=== PATIENT | female | born 1945 | race Hispanic/Latino ===

== ENCOUNTER → 2021-04-20 | Outpatient (CLI) | payer MEDICARE ==
[~2021-04-20] MED LIST: ALBU90AE IH; ASPI-1005 PO; BACL10TA PO; CARV6.25 PO; CLON0.5T4 PO; DOXY100C5 PO; LEVO50TA11 PO; LOSA50TA64 PO; MONTELUKAST PO; PRAV20TA4 PO; SPIR25TA PO; TRAM50TA4 PO; advair IH
== END | disposition home or self-care (01) ==
LOC: RAH 13:04
PROVIDERS: ATTEND Orthopaedic Surgery
DX: M17.11 Unilateral primary osteoarthritis, right knee (principal); M77.31 Calcaneal spur, right foot
CPT/HCPCS: 73700

== ENCOUNTER 2023-12-05 08:29 | Day surgery (SDC) | payer MEDICARE ==
[2023-12-05] VITALS (11 sets, daily range): BP systolic 87–134; BP diastolic 45–71; PULSE 70–79; RESP 14–16
[~2023-12-05 08:29] MED LIST changes: +0.9%NACL 1000ML 1,000 ML IV ONE; -ALBU90AE IH; -BACL10TA PO; +CELE-146 PO; -CLON0.5T4 PO; -DOXY100C5 PO; +FLUT1BLS9 IH; +FURO40TA5 PO; +GABA300C PO; -LOSA50TA64 PO; -MONTELUKAST PO; +OMEP40CA21 PO; +PRAM0.258 PO; +SACU1TAB7 PO; -TRAM50TA4 PO; -advair IH
[2023-12-05] MEDS ORDERED: PRAMIPEXOLE PO (08:55)
[2023-12-05] MEDS ORDERED: CARV12.511 PO (08:57)
[2023-12-05] MEDS ORDERED: SPIR25TA PO (08:58)
[2023-12-05] MEDS ORDERED: [UNRECOGNIZED DRUG - OTHER] PO (09:00)
[2023-12-05] MEDS ORDERED: DULO60CA64 PO (09:01)
[2023-12-05] MEDS ORDERED: PROPOFOL 10 MG/ML 20ML VIAL IV ONE (09:38)
== END 2023-12-05 11:20 | disposition home or self-care (01) ==
LOC: ENDO 08:29 → DAH 08:29 → ENDO 11:20
PROVIDERS: ATTEND Internal Medicine Gastroenterology
DX: K92.1 Melena (principal); R12 Heartburn; K59.00 Constipation, unspecified; K29.50 Unspecified chronic gastritis without bleeding; K31.89 Other diseases of stomach and duodenum; R00.0 Tachycardia, unspecified; J45.909 Unspecified asthma, uncomplicated; I10 Essential (primary) hypertension; M19.90 Unspecified osteoarthritis, unspecified site; F41.9 Anxiety disorder, unspecified; E78.2 Mixed hyperlipidemia; E78.5 Hyperlipidemia, unspecified; Z90.710 Acquired absence of both cervix and uterus; Z80.0 Family history of malignant neoplasm of digestive organs; Z86.010 Personal history of colon polyps; Z79.82 Long term (current) use of aspirin; Z79.899 Other long term (current) drug therapy
CPT/HCPCS: 43239; 45378; J7030 ×2; J2704; A4620; A4215; A4223; A4657; A7002; A4222; A4221; A4663; A4606; J3490

== ENCOUNTER 2024-08-08 06:22 | Day surgery (SDC) | payer MEDICARE ==
[2024-08-06 11:06] VITALS: BP 143/98; PULSE 91; RESP 18; TEMP 97.2
[2024-08-06 11:18] LABS: CREATININE 0.9 mg/dL (0.5-1.0)
[2024-08-06 11:29] LABS: INR 1.02 (0.85-1.15)
[2024-08-06 11:46] LABS: BASOPHILS # (AUTO) 0.05 K/uL (0.00-0.20); BASOPHILS % (AUTO) 1.1 % (0.0-5.0); EOSINOPHILS # (AUTO) 0.17 K/uL (0.00-0.70); EOSINOPHILS % (AUTO) 3.8 % (0.0-8.0); HEMATOCRIT 39.3 % (36-48); IMMATURE GRANULOCYTE ABSOLUTE 0.03 K/uL (0-1); LYMPHOCYTES # (AUTO) 1.5 K/uL (1.0-4.8); LYMPHOCYTES % (AUTO) 33.1 % (21.0-51.0); MEAN CORPUSCULAR HEMOGLOBIN 31.6 pg (27.0-33.0); MEAN CORPUSCULAR HGB CONC 32.6 g/dL (32.0-36.0); MONOCYTES # (AUTO) 0.4 K/uL (0.1-1.0); MONOCYTES % (AUTO) 7.9 % (3.0-13.0); NEUTROPHILS # (AUTO) 2.4 K/uL (1.8-7.7); NEUTROPHILS % (AUTO) 53.4 % (40.0-77.0); NUCLEATED RED BLOOD CELLS 0.4 % (0.0-0.19); PLATELET COUNT (AUTO) 264 K/uL (130-400); RED BLOOD CELL COUNT(AUTO) 4.05 MIL/uL (4.00-5.50); RED CELL DISTRIBUTION WIDTH 12.7 % (11.0-15.5); WHITE BLOOD COUNT (AUTO) 4.5 K/uL (4.8-10.8)
--- NOTE | 2024-08-06 14:19 | EKG ---
[facility] Test Date: 2024-08-06 Test Time: 11:50:15 Pat Name: AISHA MCDUFFIE Department: [facility] Room: [facility] Gender: F [employer] Stripper: [id number] : 1945 Requested By: Nick HOU Order Number: [id number] Reading MD: Zach Gonzales Measurements Intervals Drain Rate: 82 P: 134 SD: 64 QRS: -21 QRSD: 156 T: 95 QT: 455 QTc: 531 Interpretive Statements Atrial-sensed ventricular-paced rhythm Biventricular paced rhythm Compared to ECG 07/20/2016 07:35:29 No significant changes Electronically Signed On 08-10-2024 17:14:06 [employer] by Zach Gonzales Please click the below link to view image of tracing.
[2024-08-08] VITALS (13 sets, daily range): BP systolic 104–139; BP diastolic 49–91; PULSE 70–81; RESP 14–18; TEMP 97.4–97.7
[~2024-08-08] VITALS: Ht 165.1 cm; Wt 88.3 kg
[~2024-08-08 06:22] MED LIST changes: -0.9%NACL 1000ML 1,000 ML IV ONE; +CARV12.511 PO; -CARV6.25 PO; -CELE-146 PO; +DULO60CA64 PO; -FLUT1BLS9 IH; -GABA300C PO; -OMEP40CA21 PO; -PRAM0.258 PO
[2024-08-08] MEDS ORDERED: BUPIvacaine/PF 0.25% 30ML VIAL IJ ONE (07:11)
[2024-08-08] MEDS ORDERED: LIDOCAINE HCL 1% MDV 50ML VIAL ONE (07:11)
[2024-08-08] MEDS ORDERED: ceFAZolin SODIUM 1 GM VIAL ONE (07:11)
[2024-08-08] MEDS: 0.9%NACL 1000ML 1,000 ML IV SCH (07:17)
[2024-08-08] MEDS ORDERED: MIDAZOLAM HCL 1 MG/ML 2ML VIAL ONE ×3 (07:36→07:53)
[2024-08-08] MEDS ORDERED: MEPERIDINE-PF 25 MG/ML SYG ONE ×3 (07:36→07:53)
[2024-08-08] MEDS ORDERED: TEMAZepam 30 MG CAP PO PRN (08:30)
[2024-08-08] MEDS ORDERED: ondanSETRON 4MG INJ IV PRN (08:30)
[2024-08-08] MEDS ORDERED: acetaMINOPHEN 325 MG TAB PO PRN ×2 (09:00)
[2024-08-08] MEDS ORDERED: DOXY100C5 PO (09:23)
[2024-08-08] MEDS: ceFAZolin SODIUM 1 GM VIAL IVPB SCH (13:25)
[2024-08-08] MEDS ORDERED: ceFAZolin SODIUM 1 GM VIAL IVPB SCH (15:00)
== END 2024-08-08 14:55 | disposition home or self-care (01) ==
LOC: DAH 06:22
PROVIDERS: ATTEND Internal Medicine Cardiovascular Disease
DX: Z45.02 Encounter for adjustment and management of automatic implantable cardiac defibrillator (principal); I25.5 Ischemic cardiomyopathy; I11.0 Hypertensive heart disease with heart failure; I50.22 Chronic systolic (congestive) heart failure; E78.5 Hyperlipidemia, unspecified; E03.9 Hypothyroidism, unspecified; J45.909 Unspecified asthma, uncomplicated; M19.90 Unspecified osteoarthritis, unspecified site; Z79.82 Long term (current) use of aspirin; Z88.5 Allergy status to narcotic agent; Z98.890 Other specified postprocedural states; Z79.01 Long term (current) use of anticoagulants; Z79.899 Other long term (current) drug therapy
CPT/HCPCS: 80048; 85025; 85610; 85730; 36415; 93005; 33264; C1882; J0690 ×2; J7030; J0665; J2250 ×3; J2175 ×3; J3490; A4215; A4222; A4221; A4663; A4216; A4606; A4223 ×3; 99156; 99157